=== PATIENT | male | born 1985 | race Caucasian/White ===

== ENCOUNTER 2019-08-06 | Emergency (ER) | payer SELFPAY ==
[2019-08-06] MEDS ORDERED: AUGMENTIN500TAB PO (13:06)
== END 2019-08-06 13:25 | disposition home or self-care (01) | DRG 203 ==
DX: J40 Bronchitis, not specified as acute or chronic (principal); J32.9 Chronic sinusitis, unspecified; Z87.891 Personal history of nicotine dependence

== ENCOUNTER 2021-12-13 13:45 | Emergency (ER) | payer OTHER, MEDICAID ==
[~2021-12-13] VITALS: Ht 172.7 cm; Wt 80.0 kg
[~2021-12-13 13:45] MED LIST: AUGMENTIN500TAB PO
[2021-12-13 14:03] VITALS: BP 147/98
[2021-12-13 14:30] VITALS: BP 151/97
[2021-12-13 15:00] VITALS: BP 144/89
[2021-12-13 15:30] VITALS: BP 140/81
[2021-12-13] MEDS ORDERED: PERCOCET 5/321 COMBO PO (15:41)
[2021-12-13] MEDS ORDERED: NAPROXEN500 MG PO (15:41)
[2021-12-13 16:00] VITALS: BP 149/92
[2021-12-13 16:12] VITALS: BP 149/92
== END 2021-12-13 16:00 | disposition home or self-care (01) | DRG 605 ==
LOC: ED 13:45
DX: S90.32XA Contusion of left foot, initial encounter (principal); W20.8XXA Other cause of strike by thrown, projected or falling object, initial encounter; Y93.89 Activity, other specified; Y92.009 Unspecified place in unspecified non-institutional (private) residence as the place of occurrence of the external cause